=== PATIENT | male | born 1995 | race African-American/Black ===

== ENCOUNTER 2021-07-14 16:57 | Outpatient (CLI) | payer OTHER ==
--- NOTE | 2021-07-14 17:18 | XRAY Report ---
PROCEDURE: Abdomen 1 View X-Ray INDICATIONS: CONSTIPATION TECHNIQUE: 1 view of the abdomen were acquired. COMPARISON: None. FINDINGS: Surgical changes and devices: None. Bowel: No pneumoperitoneum. The bowel gas pattern is normal. A small amount stool is seen in the r ight colon. Soft tissues: No masses; visualized solid organ contours appear normal in size. No suspicious abdom inal calcifications. Bones: No suspicious bony abnormalities. IMPRESSION: Mild stool in the right colon. No signs of bowel obstruction. Reviewed by: Jeremie Mike MD on 07/14/2021 5:17 PM PST Approved by: Jeremie Mike MD on 07/14/2021 5:17 PM PST Station ID: [id number]
== END 2021-07-14 23:59 | disposition home or self-care (01) ==
LOC: DI.N 16:57
PROVIDERS: ATTEND Nurse Practitioner
DX: K59.00 Constipation, unspecified (principal)